=== PATIENT | female | born 1940 | race African-American/Black ===

== ENCOUNTER 2017-05-30 20:53 | Emergency (ER) | payer MEDICARE, OTHER ==
[~2017-05-30] VITALS: Ht 160 cm; Wt 93.0 kg
[2017-05-30 21:45] VITALS: BP 150/79
[2017-05-30] MEDS ORDERED: ACETAMINOPHEN 500 MG TABLET PO ONE (22:30)
[2017-05-30] MEDS ORDERED: ONDANSETRON ODT 4 MG TAB.RAPDIS. PO ONE (22:30)
[2017-05-30 22:32] LABS: BILIRUBIN,URINE NEGATIVE (NEG); GLUCOSE,URINE NEGATIVE (NEG); NITRITE,URINE NEGATIVE (NEG); PROTEIN,URINE NEGATIVE (NEG-TRACE); UROBILINOGEN,URINE 0.2 mg/dL (0.2 mg/dL)
--- NOTE | 2017-05-30 22:33 | PHYS DOC ---
Past Medical History Past Medical History: Arthritis, Bronchitis Past Surgical History: Appendectomy, Hysterectomy Additional Past Surgical Histo: hemmoirhoidectomy Additional Information: Non smoker Alcohol Use: None Drug Use: None Social History Narrative: Lives alone Adult General Chief Complaint Chief Complaint: MULTIPLE COMPLAINTS HPI HPI Patient is a 77 year old female who presents with fever, chills and body aches and cough. Started yesterday but chills and body aches worse today. No vomiting but nauseated. No diarrhea. No rash. Did NOT receive flu vaccine this year. Last tylenol >4 hours ago; no motrin (patient can take without allergy but didnt '). No sick contacts; lives alone. No recent travel. Cough is non productive. Review of Systems Review of Systems Constitutional: POS fever and chills Eyes: Denies change in visual acuity, redness, or eye pain HENT: POS nasal congestion but no sore throat Respiratory: POS cough but no shortness of breath Cardiovascular: No chest pain GI: Denies abdominal pain, POS nausea, No vomiting, bloody stools or diarrhea : Denies dysuria or hematuria Musculoskeletal: Diffuse myalgias; no joint swelling. Integument: Denies rash or skin lesions Neurologic: POS headache, but no focal weakness or sensory changes All other systems were reviewed and found to be within normal limits, except as documented in this note. Current Medications Current Medications Current Medications Medications (Trade) Dose Ordered Sig/Carla Start Time Stop Time Status Last Admin Dose Admin Acetaminophen (Tylenol) 1,000 mg 1X ONCE 05/30/17 22:30 05/30/17 22:31 DC Ibuprofen (Motrin) 800 mg 1X ONCE 05/30/17 22:45 05/30/17 22:46 DC Ondansetron HCl (Zofran Odt) 4 mg 1X ONCE 05/30/17 22:30 05/30/17 22:31 DC Allergies Allergies Allergies Coded Allergies Type Severity Reaction Last Updated Verified aspirin Allergy Intermediate palpitations and sweating 08/01/15 Yes Physical Exam Physical Exam Constitutional: Well developed, well nourished, no acute distress, non-toxic appearance. HENT: Normocephalic, atraumatic, TM clear bilaterally; bilateral external ears normal, oropharynx moist, no oral exudates, nose normal. Eyes: PERRLA, EOMI, conjunctiva normal, no discharge. Neck: Normal range of motion, no tenderness, supple, no stridor. Cardiovascular:Heart rate regular rhythm, tachycardic, no murmur Lungs & Thorax: Bilateral breath sounds clear to auscultation Abdomen: Bowel sounds normal, soft, no tenderness, no masses, no pulsatile masses. Skin: Warm, dry, no erythema, no rash. Back: No tenderness, no CVA tenderness. Extremities: No tenderness, no cyanosis, no clubbing, ROM intact, no edema. Neurologic: Alert and oriented X 3, normal motor function, normal sensory function, no focal deficits noted. Normal attentiveness. Psychologic: Affect normal, judgement normal, mood normal. Current Patient Data Vital Signs Vital Signs Date Time Temp Pulse Resp B/P (MAP) Pulse Ox O2 Delivery O2 Flow Rate FiO2 05/30/17 21:45 102.6 116 20 94 Room Air 102.6 Lab Values Laboratory Tests Test 05/30/17 21:42 05/30/17 22:25 Urine Collection Type Unknown Urine Color Yellow Urine Clarity Clear Urine pH 7.0 Urine Specific [place] 1.020 Urine Protein Negative mg/dL (NEG-TRACE) Urine Glucose (UA) Negative mg/dL (NEG) Urine Ketones (Stick) Negative mg/dL (NEG) Urine Blood Negative (NEG) Urine Nitrite Negative (NEG) Urine Bilirubin Negative (NEG) Urine Urobilinogen Dipstick 0.2 mg/dL (0.2 mg/dL) Urine Leukocyte Esterase Negative (NEG) Urine RBC 0 /HPF (0-2) Urine WBC 0 /HPF (0-4) Urine Squamous Epithelial Cells Mod /LPF Urine Bacteria Few /HPF (0-FEW) Urine Mucus Marked /LPF Influenza Type A Antigen Negative (NEGATIVE) Influenza Type B Antigen Negative (NEGATIVE) Course & Med Decision Making Course & Med Decision Making Evaluated patient when brought back to room (delay in bringing back). Dosed here with tylenol and motrin and zofran ODT. Influenza swab sent. CXR. At 2310 PM: influenza negative; CXR with atelectasis vs early infiltrate RLL. UA clear.Rocephin IM and azithromax po here. Home w Rx: Azithromax and zofran. Continue with tylenol and motrin. Return precautions given. patient non toxic with normal respiratory rate and saturation. I have spoken with the patient and/or caregivers. I have explained the patient' s condition, diagnosis and treatment plan based on the information available to me at this time. I have answered the patient's and/or caregiver's questions and addressed any concerns. The patient and/or caregivers have as good an understanding of the patient's diagnosis, condition and treatment plan as can be expected at this point. The patient's condition is stable and appropriate for discharge from the emergency department. The patient will pursue further outpatient evaluation with the primary care physician or other designated or consulting physician as outlined in the discharge instructions. The patient and/or caregivers are agreeable to this plan of care and follow-up instructions have been explained in detail. The patient and/or caregivers have received these instructions in written format and have expressed an understanding of the discharge instructions. The patient and/or caregivers are aware that any significant change in condition or worsening of symptoms should prompt an immediate return to this or the closest emergency department or a call to 911. Dragon Disclaimer Dragon Disclaimer This electronic medical record was generated, in whole or in part, using a voice recognition dictation system. Departure Departure Impression: Primary Impression: Bronchitis Additional Impression: Acute viral syndrome Disposition: HOME, SELF-CARE Condition: STABLE Referrals: RICHARD HEWITT MD (PCP) Patient Instructions: Acute Bronchitis, Viral Syndrome Additional Instructions: YOUR INFLUENZA WAS NEGATIVE. YOU WERE GIVEN A SHOT HERE OF ANTIBIOTICS AND YOUR FIRST DOSE OF THE ANTIBIOTIC PILL ALONG WITH THE NAUSEA PILL AND TYLENOL AND MOTRIN. CONTINUE WITH TYLENOL EVERY 4HOURS AND MOTRIN EVERY 6 HOURS. Scripts Ondansetron (ZOFRAN ODT) 8 Mg Tab.rapdis 1 TAB PO Q8HRS, #30 TAB Prov: ALEX LEGER MD 05/30/17 Azithromycin (ZITHROMAX TRI-SLY) 500 Mg Tablet 1 TAB PO DAILY, #3 TAB Prov: ALEX LEGER MD 05/30/17 Problem Qualifiers ALEX LEGER MD May 30, 2017 22:33
[2017-05-30 22:37] LABS: BACTERIA,URINE FEW /HPF (0-FEW); RBC,URINE 0 /HPF (0-2); SQUAMOUS EPITHELIAL CELL,UR MOD /LPF; WBC,URINE 0 /HPF (0-4)
[2017-05-30] MEDS ORDERED: IBUPROFEN 800 MG TABLET. PO ONE (22:45)
[2017-05-30 22:49] LABS: OBC FLU VALID
[2017-05-30] MEDS ORDERED: AZIT500T2 PO (23:19)
[2017-05-30] MEDS ORDERED: ONDA8TAB12 PO (23:19)
[2017-05-30] MEDS ORDERED: cefTRIAXone IM 1 GM VIAL IM ONE (23:30)
[2017-05-30] MEDS ORDERED: AZITHROMYCIN 250 MG TABLET. PO ONE (23:30)
--- NOTE | 2017-05-31 07:39 | RAD ---
EXAM: Chest 2 views. HISTORY: Cough and fever. COMPARISON: 12/26/2007. FINDINGS: Frontal and lateral views of the chest are obtained. Linear opacities in the bases most likely indicate atelectasis. There is a calcified granuloma in the left upper lobe. There is a large hiatal hernia. There is no pneumothorax or pleural effusion. The heart is not enlarged. IMPRESSION: 1. Large hiatal hernia. 2. Mild basilar atelectasis versus minimal atypical infiltrates.
== END 2017-05-31 00:04 | disposition home or self-care (01) ==
LOC: ER 20:53
DX: J40 Bronchitis, not specified as acute or chronic (principal); B34.9 Viral infection, unspecified; M19.90 Unspecified osteoarthritis, unspecified site; Z90.49 Acquired absence of other specified parts of digestive tract; Z90.710 Acquired absence of both cervix and uterus; Z88.6 Allergy status to analgesic agent
CPT/HCPCS: 71020; 81001; 87804; 96372; 99285; J0696; Q0144; Q0162

== ENCOUNTER → 2018-01-23 | Outpatient (CLI) | payer MEDICARE, OTHER ==
[~2018-01-23] MED LIST: IOHEXOL 180 MG/ML 10 ML VIAL.; LIDOCAINE 1% PF 2 ML VIAL.; methylPREDNISolone ACETATE 40 MG/ML VIAL.; methylPREDNISolone ACETATE 80 MG/ML VIAL.
== END | disposition home or self-care (01) ==
LOC: PNCL 10:15
DX: M51.16 Intervertebral disc disorders with radiculopathy, lumbar region (principal); M48.061 Spinal stenosis, lumbar region without neurogenic claudication; I10 Essential (primary) hypertension; M19.90 Unspecified osteoarthritis, unspecified site; Z90.710 Acquired absence of both cervix and uterus; Z98.890 Other specified postprocedural states; Z98.42 Cataract extraction status, left eye; Z98.41 Cataract extraction status, right eye; Z96.1 Presence of intraocular lens; Z88.6 Allergy status to analgesic agent; Z90.49 Acquired absence of other specified parts of digestive tract
CPT/HCPCS: 62323; J1030; J1040; Q9965

== ENCOUNTER → 2018-02-06 | Outpatient (CLI) | payer MEDICARE, OTHER ==
[~2018-02-06] MED LIST changes: -LIDOCAINE 1% PF 2 ML VIAL.; +LIDOCAINE 2% PF 2ML VIAL.
== END | disposition home or self-care (01) ==
LOC: PNCL 11:12
DX: M51.16 Intervertebral disc disorders with radiculopathy, lumbar region (principal); M48.061 Spinal stenosis, lumbar region without neurogenic claudication; Z88.6 Allergy status to analgesic agent; Z79.82 Long term (current) use of aspirin; Z79.899 Other long term (current) drug therapy; Z90.710 Acquired absence of both cervix and uterus; Z90.49 Acquired absence of other specified parts of digestive tract; Z98.42 Cataract extraction status, left eye; Z98.41 Cataract extraction status, right eye; Z96.1 Presence of intraocular lens; I10 Essential (primary) hypertension; M19.90 Unspecified osteoarthritis, unspecified site; Z98.890 Other specified postprocedural states
CPT/HCPCS: 62323; J1030; J1040; J2001; Q9965